=== PATIENT | female | born 1985 | race African-American/Black ===

== ENCOUNTER 2017-04-03 22:13 | Emergency (ER) | payer BC, OTHER ==
[~2017-04-03] VITALS: Ht 165.1 cm; Wt 82.0 kg
[~2017-04-03 22:13] MED LIST: ALBU17I; ALBU6.7H INH; AMOX500T PO; PRED20 PO
[2017-04-03 22:14] VITALS: BP 155/91; PULSE 73; RESP 16; TEMP 98.8; O2SAT 99
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
== END 2017-04-04 01:27 | disposition home or self-care (01) ==
LOC: NEPD 22:13
DX: S46.912A Strain of unspecified muscle, fascia and tendon at shoulder and upper arm level, left arm, initial encounter (principal); M54.5 Low back pain; J45.909 Unspecified asthma, uncomplicated; V43.92XA Unspecified car occupant injured in collision with other type car in traffic accident, initial encounter
CPT/HCPCS: 72072; 73030; 99284